=== PATIENT | female | born 1945 | race Caucasian/White ===

== ENCOUNTER 2025-06-20 22:20 | Emergency (ER) | payer MEDICARE ==
[~2025-06-20] VITALS: Ht 165.1 cm; Wt 80.7 kg
[2025-06-20] MEDS ORDERED: SODIUM CHLORIDE 0.9% 500 ML IV PRN (22:45)
[2025-06-20] MEDS ORDERED: MORPHINE SULFATE 4 MG/ML VIAL IV ONE (22:45)
[2025-06-20 22:55] LABS: BASOPHILS 0.7 % (0.1-1.2); EOSINOPHILS 1.1 % (0.7-5.8); LYMPHOCYTES 21.2 % (19.3-51.7); MCH 30.9 PG (25.6-32.2); MCHC 34.2 g/dL (32.2-35.5); MCV 90.4 fL (79.4-94.8); MONOCYTES 10.4 % (4.7-12.5); NEUTROPHILS 66.2 % (34.0-71.1); RBC 4.88 M/uL (3.93-5.22)
[2025-06-20 23:16] LABS: ALT (SGPT) 16.0 U/L (14-59); AST (SGOT) 15.0 U/L (15-37); GLOMERULAR FILTRATION RATE,EST 93.0 mL/min (>60); PROTEIN, TOTAL 7.8 g/dL (6.4-8.2); UREA NITROGEN 9.0 mg/dL (7-18)
[2025-06-21 01:22] LABS: BLOOD/HGB, URINE TRACE-I (Negative); KETONE, URINE TRACE (Negative); LEUK ESTERASE, URINE TRACE (negative); NITRITE, URINE NEGATIVE (negative)
[2025-06-21 01:28] LABS: EPITHELIAL CELLS, URINE SQUAMOUS 1+ /lpf (0-1+)
[2025-06-21 01:29] LABS: BACTERIA, URINE RARE /hpf (negative); CASTS, URINE NONE SEEN \\lpf; CRYSTALS, URINE NONE SEEN (0-1+); REFLEX CULTURE, URINE No (No)
[2025-06-21] MEDS ORDERED: COLACE100 MG PO (01:43)
[2025-06-21] MEDS ORDERED: HYDROCODON-ACE1 EA10 PO (01:43)
[2025-06-21] MEDS ORDERED: ONDANSETRON ODT8 MG PO (01:43)
[2025-06-21] MEDS ORDERED: HYDROCODONE BIT/ACETAMINOPHEN 5/325 MG 1 TAB HOME.PACK PO ONE (01:45)
[2025-06-21] MEDS ORDERED: ONDANSETRON 4 MG HOME.PACK SL ONE (01:45)
[2025-06-21 02:11] VITALS: BP 144/77
== END 2025-06-21 02:12 | disposition home or self-care (01) ==
LOC: ED 22:20
PROVIDERS: Family Medicine
DX: K43.9 Ventral hernia without obstruction or gangrene (principal); R22.2 Localized swelling, mass and lump, trunk; I10 Essential (primary) hypertension; E78.5 Hyperlipidemia, unspecified
CPT/HCPCS: 36415; 74177; 80053; 81001; 83690; 85025; 96374; 96375; 99284-25; A9270; J2270; J2405; J7040; Q9967

== ENCOUNTER 2025-06-26 08:43 | Day surgery (SDC) | payer MEDICARE ==
[~2025-06-26] VITALS: Ht 165.1 cm; Wt 80.0 kg
[~2025-06-26 08:43] MED LIST: COLACE100 MG PO; HYDROCODON-ACE1 EA10 PO; ONDANSETRON ODT8 MG PO
[2025-06-26] MEDS ORDERED: HYDROCHLOROTHIA25 MG PO (08:59)
[2025-06-26] MEDS ORDERED: AMLODIPINE BESY10 MG PO (08:59)
[2025-06-26] MEDS ORDERED: OMEPRAZOLE20 MG PO (09:00)
[2025-06-26] MEDS ORDERED: METOPROLOL TART50 MG PO (09:00)
[2025-06-26] MEDS ORDERED: LISINOPRIL40 MG PO (09:00)
[2025-06-26] MEDS ORDERED: SIMVASTATIN40 MG PO (09:00)
[2025-06-26 11:16] LABS: BASOPHILS 1.2 % (0.1-1.2); EOSINOPHILS 2.1 % (0.7-5.8); LYMPHOCYTES 35.9 % (19.3-51.7); MCH 30.5 PG (25.6-32.2); MCHC 32.8 g/dL (32.2-35.5); MCV 93.0 fL (79.4-94.8); MONOCYTES 8.6 % (4.7-12.5); NEUTROPHILS 51.9 % (34.0-71.1); RBC 4.99 M/uL (3.93-5.22)
[2025-06-26 11:40] LABS: ALT (SGPT) 20.0 U/L (14-59); AST (SGOT) 18.0 U/L (15-37); GLOMERULAR FILTRATION RATE,EST 71.0 mL/min (>60); PROTEIN, TOTAL 8.3 g/dL (6.4-8.2); UREA NITROGEN 7.0 mg/dL (7-18)
[2025-06-26] MEDS ORDERED: LACTATED RINGER'S 1,000 ML IV SCH ×2 (12:00→14:30)
[2025-06-26] MEDS ORDERED: CEFAZOLIN SODIUM 2 GM/20 ML SYR ONE (12:45)
[2025-06-26] MEDS ORDERED: fentaNYL citrate 100 MCG/2 ML VIAL ONE (12:46)
[2025-06-26] MEDS ORDERED: SUCCINYLCHOLINE IN 0.9% NACL 200 MG/10 ML SYRINGE ONE (12:47)
[2025-06-26] MEDS ORDERED: MAGNESIUM SULFATE 1 GM/2 ML VIAL ONE (12:47)
[2025-06-26] MEDS ORDERED: LIDOCAINE HCL 2% 5 ML SDV ONE (12:47)
[2025-06-26] MEDS ORDERED: KETAMINE in NS 50 MG/5 ML SYR ONE (12:47)
[2025-06-26] MEDS ORDERED: ROCURONIUM BROMIDE 50 MG/5 ML SYR ONE (12:47)
[2025-06-26] MEDS ORDERED: SODIUM CHLORIDE 0.9% 40 ML IV ONE (12:48)
[2025-06-26] MEDS ORDERED: DEXAMETHASONE SOD PHOS 4 MG/ML VIAL ONE (12:52)
[2025-06-26] MEDS ORDERED: ACETAMINOPHEN 1,000 MG/100 ML VIAL ONE (12:52)
[2025-06-26] MEDS ORDERED: SUGAMMADEX SODIUM 200 MG/2 ML ML ONE (13:59)
[2025-06-26] MEDS ORDERED: fentaNYL citrate 50 MCG/ML SDV IV PRN (14:30)
[2025-06-26] MEDS ORDERED: OXYCODONE HCL 5 MG TAB PO PRN (14:30)
[2025-06-26] MEDS ORDERED: IBUPROFEN600 MG PO (14:30)
[2025-06-26] MEDS ORDERED: OXYCODONE HCL5 M1 PO (14:30)
[2025-06-26] MEDS ORDERED: KETOROLAC TROMETHAMINE 30 MG/ML VIAL IV PRN (14:30)
[2025-06-26] MEDS ORDERED: NALOXONE HCL 0.4 MG SYR IV PRN ×2 (14:30)
[2025-06-26] MEDS ORDERED: IBLOOD GLUCOSE TEST STRIP 1 EA TEST VI PRN (14:30)
[2025-06-26] MEDS ORDERED: ACETAMINOPHEN 500 MG TAB PO PRN (14:30)
[2025-06-26] MEDS ORDERED: IBUPROFEN 600 MG TAB PO PRN (14:30)
[2025-06-26] MEDS ORDERED: ACETAMINOPHEN500 MG PO (14:31)
--- NOTE | 2025-06-26 14:31 | NUR ---
06/26/25 1431 Sheets,Lucila 1412 PT ARRIVED TO PACU WITH EYES OPEN AND PT DENIES PAIN. PT REPORTS SMALL AMOUNT OF NAUSEA. VSS. 1415 EMESIS BAG GIVEN AND HOB INCREASED. PT REPORTS SMALL AMOUNT OF PAIN 12/18. 1417 NAUSEA MEDICATION GIVEN PER EMAR. FLAT AFFECT NOTED. PT CLEARING HER THROAT OFF AND ON, PT LOOKING STRAIGHT AHEAD AND DENIES CONCERNS.
[2025-06-26] MEDS ORDERED: SEVOFLURANE 250 ML BTL INH ONE (14:41)
[2025-06-26 14:51] VITALS: BP 125/68
--- NOTE | 2025-06-26 14:56 | NUR ---
1450-PT TO DAY SURGERY ROOM 5 ON RA. RECEIVED REPORT FROM LUPIS FAIRBANKS. PT IS DROWSY. RESP EVEN AND UNLABORED. PT RATES PAIN 3/10. PT STATES NAUSEA IS BETTER SINCE RECEIVING MEDICATION IN PACU. PROVIDED PT WITH WATER AND CRACKERS. NO OTHER NEEDS AT THIS TIME. CALL LIGHT WITHIN REACH.
--- NOTE | 2025-06-26 15:52 | EKG ---
[facility] [address] [facility] [place], [place] [address] Signed Normal sinus rhythm Normal ECG No previous ECGs available Confirmed by Vicki Degroot MD ([id number]) on 06/26/2025 3:51:51 PM Electronically Signed By: VICKI DEGROOT MD 06/26/25 1552 PATIENT NAME: YOUSIF CORCORAN Electrocardiogram DATE OF : 49 PHYSICIAN: VICKI DEGROOT MD REPORT #: [id number] REPORT IS CONFIDENTIAL AND NOT TO BE RELEASED WITHOUT AUTHORIZATION
[2025-06-26 15:53] VITALS: BP 136/75
--- NOTE | 2025-06-26 16:39 | NUR ---
LE 1553-PT IS AWAKE LAYING IN BED. RESP EVEN AND UNLABORED. RATES PAIN 4/10 AND THIS IS TOLERABLE AT THIS TIME. FRIEND AT BEDSIDE. NO OTHER NEEDS AT THIS TIME. CALL LIGHT WITHIN REACH.
--- NOTE | 2025-06-26 16:40 | NUR ---
1630-PT UP TO RESTROOM. GAIT STEADY AND TOLERATED WELL. PT VOIDS 600ML OF YELLOW URINE. 1636-PT BACK TO ROOM. PT WILL GET DRESSED. CALL LIGHT WITHIN REACH.
--- NOTE | 2025-06-26 16:48 | NUR ---
LE 1645-WENT OVER DISCHARGE INSTRUCTIONS WITH PT. ALL QUESTIONS ANSWERED. WENT OVER POSTOP MEDICATIONS. LE 1648-RIDE PROVIDED TO FRONT OF HOSPITAL WHERE RIDE WAS WAITING WITH CAR.
--- NOTE | 2025-06-27 14:40 | HP ---
[facility] [address] [place], [place] [address] Signed ADMISSION DATE: 06/26/2025 TIME: 11:55 a.m. PROBLEM: Incarcerated left spigelian hernia (symptomatic). HISTORY: This 80-year-old white woman is from [place], [place]. She presented to the emergency room on June [address] Rubi with complaints of left lower abdominal pain. A palpable mass was noted in the area and a CT scan was performed, which showed findings consistent with a spigelian hernia with a portion of sigmoid colon within the hernia. The defect was considered relatively large. She was evaluated by Dr. Rubi and advised to follow up for outpatient evaluation for consideration of hernia repair. There were other findings on the CT scan for which outpatient evaluation was recommended. The patient had severe and ongoing pain and thus presented once again to the emergency room where she was evaluated today by Dr. Singh. She is noted to have tenderness in the left lower abdomen and persistent discomfort and complaints of pain. Consultation was undertaken on that basis. Review of her CT scan from 06/20/2025, confirmed a hernia in the left lower abdomen containing a portion of sigmoid, but without sign of obstruction of the bowel. Diverticular changes were noted of the sigmoid colon as well. 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 I was called by Dr. Singh consultation undertaken. Lab studies were undertaken showing a normal white count of 6.6 and a Chem profile, which was normal as well. The patient currently complains of left lower abdominal pain, but no nausea or vomiting. REVIEW OF SYSTEMS: She denies any shortness of breath or chest pain. She does have hypertension for which she takes medication. PHYSICAL EXAMINATION: VITAL SIGNS: Current blood pressure shows a diastolic pressure of 88, systolic 136. Electronically Signed By: KANG BERGMAN MD 06/27/25 1440 PATIENT NAME: YOUSIF CORCORAN HISTORY AND PHYSICAL DATE OF : 49 REPORT #: [id number] PHYSICIAN: KANG BERGMAN MD PCP: NO PRIMARY CARE PHYSICIAN REPORT IS CONFIDENTIAL AND NOT TO BE RELEASED WITHOUT AUTHORIZATION [facility] [address] [place], [place] [address] Signed NECK: Trachea is midline. She is wearing sunglasses over her regular eyeglasses. Trachea is midline. She has no carotid bruit. CHEST: Clear. HEART: Regular without murmur. ABDOMEN: Obese, but soft. There is a palpable mass and tenderness in the left lower quadrant. Manipulation does not allow for reduction of what appears to be a spigelian hernia. Right groin area is normal. EXTREMITIES: Showed mild edema. ASSESSMENT: The patient has an apparent incarcerated spigelian hernia on the left side for which she is symptomatic. This is probably the same as it was a few days ago. Her white count is not elevated, which she is markedly tender and given the incarcerated nature of the problem, would recommend repair today if possible. We will obtain a 12-lead EKG preoperatively. The risk of bleeding, infection, recurrence, and other unforeseen complications was reviewed with her and her attendant friend. She understands these risks and wished to proceed. MD IAN Tompkins/MODL /[id number] cc: MADI Maldonado [facility] Dr. Francisco Rubi Electronically Signed By: KANG BERGMAN MD 06/27/25 1440 PATIENT NAME: YOUSIF CORCORAN HISTORY AND PHYSICAL DATE OF : 49 REPORT #: [id number] PHYSICIAN: KANG BERGMAN MD PCP: NO PRIMARY CARE PHYSICIAN REPORT IS CONFIDENTIAL AND NOT TO BE RELEASED WITHOUT AUTHORIZATION [facility] [address] [place] [address] [place], [place] [address] Signed Copies: ~ Electronically Signed By: KANG BERGMAN MD 06/27/25 1440 PATIENT NAME: YOUSIF CORCORAN HISTORY AND PHYSICAL DATE OF : 49 REPORT #: [id number] PHYSICIAN: KANG BERGMAN MD PCP: NO PRIMARY CARE PHYSICIAN REPORT IS CONFIDENTIAL AND NOT TO BE RELEASED WITHOUT AUTHORIZATION
--- NOTE | 2025-06-27 14:40 | OR ---
[facility] [address] [place], [place] [address] Signed DATE OF OPERATION: 06/26/2025 SURGEON: Kang Bergman MD PREOPERATIVE DIAGNOSIS: Incarcerated symptomatic large left spigelian hernia. POSTOPERATIVE DIAGNOSIS: Incarcerated symptomatic large left spigelian hernia, fascial defect 6 cm. PROCEDURES: 1. Repair of incarcerated spigelian hernia (fascial defect 6 cm). 2. Implantation of Prolene mesh underlay technique. ANESTHESIA: General endotracheal; Brian Bhandari, BLOW MOLDING MACHINE TENDER and local 10 mL of 0.25% Marcaine with epinephrine. INDICATION: This 80-year-old white woman presents to the emergency room on June 21. She lives in [place], [place]. She had severe left lower abdominal pain. Concern was maintained for possible diverticulitis. She was evaluated by Dr. Rubi, which included a CT scan of the abdomen. This demonstrated actually a spigelian hernia which was relatively wide-mouth. Though the patient was uncomfortable she was discharged to home. She will return to the emergency room today and evaluated at this point by Dr. Gene Singh. She was found to have tenderness and the hernia in the left lower abdomen once again. I was consulted and clear evidence shows that she does have incarcerated very symptomatic spigelian hernia particularly in reference to review of her CT scan recently performed. I have recommended repair at this time. The risk of bleeding, infection, recurrent hernia, and other unforeseen complications was reviewed in detail. She understands and wished to proceed. FINDINGS: The very classic spigelian hernia was noted with a fascial defect lateral to the rectus sheath in the lower abdomen. Fascial defect was very discrete and was 6 cm in length. Reduction of the herniated contents was undertaken and implantation of Prolene mesh in the properitoneal space was accomplished as well as fascial reapproximation. She tolerated the procedure well. DESCRIPTION OF PROCEDURE: Electronically Signed By: KANG BERGMAN MD 06/27/25 1440 PATIENT NAME: YOUSIF CORCORAN OPERATIVE REPORT DATE OF : 49 REPORT #: [id number] PHYSICIAN: KANG BERGMAN MD PCP: NO PRIMARY CARE PHYSICIAN REPORT IS CONFIDENTIAL AND NOT TO BE RELEASED WITHOUT AUTHORIZATION [facility] [address] [place], [place] [address] Signed The patient was brought to the operating room, given a general endotracheal anesthetic. Preoperative antibiotic Ancef was given. Sequential compression device stockings were used. The abdomen was clipped and prepared with a chlorhexidine solution and draped sterilely. Over the palpable mass of non-reduced hernia somewhat medial to the anterior superior iliac spine. A curvilinear incision was made directly over the area. Dissection was carried through the subcutaneous tissue with electrocautery. The external oblique was bulging and was incised along its fibers revealing beneath it herniated intraabdominal contents in the typical spigelian hernia fashion. The hernia sac and its contents which were edematous and inflamed were freed from the surrounding soft tissue with blunt electrocautery dissection. Ultimately, the fascial defect itself could be identified and adhesions of the hernia sac to this area were freed allowing for reduction of the spigelian hernia to the intraabdominal cavity without problem. Photographs were taken. The fascial defect was bluntly circumferentially in the properitoneal space and measured approximately 6 cm in size. A segment of Prolene mesh (ProGrip) was cut to an elliptical configuration and secured in an underlay technique with interrupted 0 Prolene sutures. The fascia itself was reapproximated with interrupted 0 Prolene in a horizontal mattress configuration. 10 mL of 0.25% Marcaine with epinephrine was injected locally. Irrigation was undertaken more fully. The external oblique was reapproximated with running 2-0 Vicryl. Maxi layer reapproximated with interrupted 3-0 Vicryl and skin closed with running subcuticular 3-0 Vicryl. Steri-Strips were applied. An Acticoat dressing was applied as well. She was ultimately extubated and transferred to recovery room in good condition having suffered no complication. Sponge, needle, and instrument counts reported as correct x3. Kang Bergman MD JM/MODL /[id number] cc: MD Dr. Leeann Vidales [facility] Electronically Signed By: KANG BERGMAN MD 06/27/25 1440 PATIENT NAME: YOUSIF CORCORAN OPERATIVE REPORT DATE OF : 49 REPORT #: [id number] PHYSICIAN: KANG BERGMAN MD PCP: NO PRIMARY CARE PHYSICIAN REPORT IS CONFIDENTIAL AND NOT TO BE RELEASED WITHOUT AUTHORIZATION [address] [address] Signed Lydia Jeffers Copies: GENE SINGH MD ~ Electronically Signed By: KANG BERGMAN MD 06/27/25 1440 PATIENT NAME: YOUSIF CORCORAN OPERATIVE REPORT DATE OF : 49 REPORT #: [id number] PHYSICIAN: KANG BERGMAN MD PCP: NO PRIMARY CARE PHYSICIAN REPORT IS CONFIDENTIAL AND NOT TO BE RELEASED WITHOUT AUTHORIZATION
== END 2025-06-26 16:45 | disposition home or self-care (01) ==
LOC: ED 08:43 → DS 12:22 → DSVR 12:22 → DS 16:45
PROVIDERS: Emergency Medicine; ATTEND Surgery
PROC: 0WUF0JZ Supplement Abdominal Wall with Synthetic Substitute, Open Approach (ICD-10-PCS; principal; 2025-06-26 12:52)
DX: K43.6 Other and unspecified ventral hernia with obstruction, without gangrene (principal); I10 Essential (primary) hypertension; E78.5 Hyperlipidemia, unspecified; Z79.899 Other long term (current) drug therapy; Z90.710 Acquired absence of both cervix and uterus
CPT/HCPCS: 00830; 36415; 80053; 85025; 93005; 93010; 99285; C1781; J0131; J0330; J0690; J1100; J1790; J2003; J2405; J2704; J3010; J3475; J3490; J7121